=== PATIENT | male | born 1965 | race Native Hawaiian/Other Pacific Islander ===

== ENCOUNTER 2018-03-14 07:40 | Day surgery (SDC) | payer BC ==
[~2018-03-14] VITALS: Ht 30.5 cm; Wt 0.5 kg
[2018-03-14 08:39] LABS: PLATELET COUNT 403 K/uL (142-355)
[2018-03-14 08:46] LABS: POTASSIUM 3.7 mmol/L (3.6-5.2)
== END 2018-03-14 11:32 | disposition home or self-care (01) ==
LOC: OR 07:40
PROVIDERS: Student in an Organized Health Care Education/Training Program
PROC: 0DB48ZZ Excision of Esophagogastric Junction, Via Natural or Artificial Opening Endoscopic (ICD-10-PCS; principal; 2018-03-14)
PROC: 0DB58ZZ Excision of Esophagus, Via Natural or Artificial Opening Endoscopic (ICD-10-PCS; 2018-03-14)
DX: C16.0 Malignant neoplasm of cardia (principal); C15.9 Malignant neoplasm of esophagus, unspecified; K21.9 Gastro-esophageal reflux disease without esophagitis; K44.9 Diaphragmatic hernia without obstruction or gangrene; R19.09 Other intra-abdominal and pelvic swelling, mass and lump; R13.12 Dysphagia, oropharyngeal phase
CPT/HCPCS: 80053; 85027; J2001; J2250; J2704; J3010

== ENCOUNTER 2018-07-11 15:31 | Outpatient (CLI) | payer BC ==
[2018-07-11 16:03] LABS: PLATELET COUNT 172 K/uL (142-355)
[2018-07-11 16:11] LABS: POTASSIUM 3.9 mmol/L (3.6-5.2)
== END 2018-07-11 23:07 | disposition home or self-care (01) ==
LOC: LABW 15:31
PROVIDERS: Student in an Organized Health Care Education/Training Program
DX: I95.89 Other hypotension (principal)
CPT/HCPCS: 36415; 36591; 80053; 85027; 87040; J1642

== ENCOUNTER 2019-10-11 07:23 | Inpatient (IN) | payer BC ==
[~2019-10-11] VITALS: Ht 177.8 cm; Wt 59.2 kg
[2019-10-11] VITALS (14 sets, daily range): BP systolic 95–117; BP diastolic 57–79; TEMP 97.5–98.4; Ht 177.8 cm; Wt 59.2 kg
[2019-10-11 08:07] LABS: PLATELET COUNT 154 K/uL (142-355)
[2019-10-11 08:25] LABS: POTASSIUM 5.7 mmol/L (3.6-5.2)
[2019-10-12 04:03] VITALS: BP 107/65; TEMP 98.5
[2019-10-12 05:35] LABS: PLATELET COUNT 135 K/uL (142-355)
[2019-10-12 05:41] LABS: POTASSIUM 6.8 mmol/L (3.6-5.2)
[2019-10-12 08:00] VITALS: BP 99/61; TEMP 98
[2019-10-12 12:00] VITALS: BP 98/64; TEMP 97.8
[2019-10-12 20:00] VITALS: BP 100/65; TEMP 98.2
== END 2019-10-12 22:14 | disposition short-term general hospital (02) | DRG 435 ==
LOC: ED 07:23 → MED/SURG 10:45
PROVIDERS: Emergency Medicine; Internal Medicine; ADMIT Hospitalist
DX: C78.7 Secondary malignant neoplasm of liver and intrahepatic bile duct (principal); E43 Unspecified severe protein-calorie malnutrition; E87.2 Acidosis; N17.8 Other acute kidney failure; E44.0 Moderate protein-calorie malnutrition; C15.9 Malignant neoplasm of esophagus, unspecified; K76.89 Other specified diseases of liver; E87.5 Hyperkalemia; E80.6 Other disorders of bilirubin metabolism
CPT/HCPCS: 36415; 80053; 81000; 82150; 83605; 83690; 83735; 84100; 85007; 85027; 96360; 96361; 96365; 96375; 96376; 99284; J1170; J1650; J2175; J2185; J2270; J2405; J2550; J3490